=== PATIENT | female | born 1955 | race Caucasian/White ===

== ENCOUNTER → 2017-12-13 | Outpatient (CLI) | payer BC ==
--- NOTE | 2017-12-13 12:44 | Diagnostic Imaging Report ---
PROCEDURE:US RETROPERITONEAL ( KIDNEY ). COMPARISON:None. INDICATIONS:Cyst Of Kidney TECHNIQUE: Medina-scale and color sonographic images of the bilateral kidneys and bladder where obtained in transverse and longitudinal planes. FINDINGS: RIGHT KIDNEY: Measures 9.0 x 3.2 x 3.7 cm, cortex 1.1 cm Cysts: There is a 1.9 cm right lower pole renal cyst. Solid masses: None Stones: Echogenic stone measuring 6 mm in the midportion of the right kidney. Hydronephrosis: None Echogenicity: Normal LEFT KIDNEY: Measures 10.1 x 5.3 x 4.1 cm, cortex 1.5 cm Cysts: None Solid masses: None Stones: None Hydronephrosis: None Echogenicity: None Bladder: Normal CONCLUSION: 1. Simple right lower pole renal cyst. 2. Shadowing stone in the midpole of the right kidney has a maximal measurement of 6 mm. Johny Borges D.O. Dictated by: Johny Borges D.O. on 12/13/2017 at 12:45 Electronically approved by: Johny Borges D.O. on 12/13/2017 at 12:45
== END ==
LOC: US 11:14
PROVIDERS: ATTEND Urology
DX: N28.1 Cyst of kidney, acquired (principal)
CPT/HCPCS: 76770

== ENCOUNTER → 2018-06-28 | Outpatient (CLI) | payer BC ==
--- NOTE | 2018-06-28 10:26 | Diagnostic Imaging Report ---
PROCEDURE: CT ABDOMEN AND PELVIS WITHOUT CONTRAST TECHNIQUE: The abdomen and pelvis were scanned utilizing a multidetector helical scanner from the diaphragm to the lesser trochanter. No IV contrast was administered per protocol. Coronal and sagittal multiplanar reformations were obtained. COMPARISON: Renal ultrasound 12/13/17. INDICATIONS: RENAL STONE FINDINGS: ABSENCE OF INTRAVENOUS CONTRAST DECREASES SENSITIVITY FOR DETECTION OF FOCAL LESIONS AND VASCULAR PATHOLOGY. LOWER THORAX: Patchy dependent atelectasis. Calcified granuloma in the right lower lobe. HEPATOBILIARY: No focal hepatic lesions. No biliary ductal dilatation. SPLEEN: No splenomegaly. PANCREAS: No focal masses or ductal dilatation. ADRENALS: No adrenal nodules. KIDNEYS/URETERS: No hydronephrosis or solid mass lesions. There is a 5 mm right mid pole non-obstructive renal stone, similar to prior renal ultrasound accounting for differences in technique. Hypodense lesion in the right lower pole was previously characterized as a simple cyst on ultrasound. PELVIC ORGANS/BLADDER: Unremarkable. PERITONEUM / RETROPERITONEUM: No free air or fluid. LYMPH NODES: No lymphadenopathy. VESSELS: Unremarkable. GI TRACT: No distention or wall thickening. Sigmoid diverticulosis without CT evidence of diverticulitis. BONES AND SOFT TISSUES: No acute bony findings. IMPRESSION: Non-obstructive 5 mm right renal stone, similar to prior renal ultrasound. Dictated by: HARSHA KIRKLAND M.D. on 06/28/2018 at 10:34 Electronically approved by: HARSHA KIRKLAND M.D. on 06/28/2018 at 10:34
== END ==
LOC: CT 08:28
PROVIDERS: ATTEND Urology
DX: N20.0 Calculus of kidney (principal)
CPT/HCPCS: 74176

== ENCOUNTER → 2018-11-29 | Day surgery (SDC) | payer BC ==
[2018-11-23 12:09] LABS: BASOPHILS % 0.4 % (0.0-1.0); EOSINOPHILS # (AUTO) 0.1 (0.0-0.4); HEMATOCRIT 44.3 % (34.2-44.1); HEMOGLOBIN 14.4 g/dL (12.0-16.0); LYMPHOCYTES # (AUTO) 1.4 (1.0-3.2); LYMPHOCYTES % 21.1 % (18.0-39.1); MEAN CORPUSCULAR HEMOGLOBIN 30.6 pg (28-32); MEAN CORPUSCULAR HGB CONC 32.5 g/dL (31-35); MEAN CORPUSCULAR VOLUME 94.3 fL (81-99); MONOCYTES # (AUTO) 0.5 (0.2-0.8); MONOCYTES % 7.9 % (4.4-11.3); NEUTROPHILS # (AUTO) 4.7 (2.1-6.9); NEUTROPHILS % 68.4 % (38.7-80.0); PLATELET COUNT 329 x10e3/uL (140-360); RED CELL DISTRIBUTION WIDTH 13.1 % (11.7-14.4)
[2018-11-23 12:34] LABS: ALANINE AMINOTRANSFERASE 34 IU/L (0-55); ALBUMIN 3.8 g/dL (3.5-5.0); ALKALINE PHOSPHATASE 108 IU/L (40-150); ANION GAP 12.8 mmol/L (8-16); BLOOD UREA NITROGEN 16 mg/dL (7-26); BUN/CREATININE RATIO 18 (6-25); CARBON DIOXIDE 29 mmol/L (22-29); CHLORIDE 100 mmol/L (98-107); CREATININE, SERUM 0.88 mg/dL (0.57-1.11); EST GLOMERULAR FILTRATION RATE > 60 ML/MIN (60-); GLUCOSE 103 mg/dL (74-118); POTASSIUM 3.8 mmol/L (3.5-5.1); SODIUM 138 mmol/L (136-145)
--- NOTE | 2018-11-23 13:31 | Diagnostic Imaging Report ---
EXAM: CHEST 2 VIEWS, PA and lateral DATE: 11/23/2018 Time stamp on exam: 12:15 PM INDICATION: Preoperative COMPARISON: None FINDINGS: LINES/TUBES: None LUNGS: Right a similar atelectasis/scarring. PLEURA: No effusions or pneumothorax. HEART AND MEDIASTINUM: Normal size and contour. BONES AND SOFT TISSUES: No acute findings. IMPRESSION: No acute thoracic abnormality. Signed by: Dr. Johny Borges DO on 11/23/2018 1:27 PM
[~2018-11-29] MED LIST: ABILIFY5 MG PO; ADVAIR 100-501 EACH; ASPIRIN81 MG; BELLADONNA/OPIUM 60 MG SUPP PR ONE; BISOPROLOL-HCT1 EAC2; BUPROPION HCL100 MG PO; BUTALBIT-ACETA1 EACH; CEFTRIAXONE SOD 1 GM/NS 50 ML 50 ML IV ONE; CEPHALEXIN500 MG PO; DEXAMETHASONE SOD PHOS INJ 4 MG/ML VIAL ONE; DIAZEPAM5 MG PO; DULERA 200 MCG/13 GM; FENTANYL CITRATE/PF 100MCG/2 ML INJ ONE; IOPAMIDOL 610MG/1ML 300 MG/ML VIAL IV ONE; LEVOTHYROXINE50 MCG PO; LIDOCAINE HCL 2% LOCAL INJ 5 ML SDV VIAL INJ ONE; OMEGA 3 1,0001 EACH; ONDANSETRON HCL INJ 2MG/ML 2ML 2 MG/ML VIAL ONE; PRAVASTATIN SOD20 MG; PROPOFOL IV EMULSION 10 MG/ML 20 ML VIAL ONE; PROVENTIL HFA6.7 GM; SEVOFLURANE INHAL SOLN 250 ML PEN BTL ONE; SINGULAIR10 MG; VIRTUSSIN; VITAMIN D32000 UNIT
--- OUTSIDE RECORDS SUMMARY | 2018-11-29 08:10 | XMS REPORT ---
Author Author [facility] Address Unknown Phone Unavailable Care Team Providers Care Reed Fixer Name Role Phone BEULAH LINARES Unavailable Unavailable Problems This patient has no known problems. Allergies, Adverse Reactions, Alerts This patient has no known allergies or adverse reactions. Medications This patient has no known medications. Results Test Description Test Time Test Comments Text Results Atomic Results Result Comments CHEST 2 VIEWS 2018-11-23 13:27:00 [place] [address] Patient Name: CLARISSA ARMANDO MR #: [id number] : 1955 Age/Sex: 63/F Req #: [id number] Adm Physician: Ordered by: BEULAH LINARES MD Report #: [id number] Location: OR Room/Bed: Procedure: [id number] DX/CHEST 2 VIEWS Exam Date: 11/23/18 Exam Time: 1210 REPORT STATUS: Signed EXAM: CHEST 2 VIEWS, PA and lateral DATE: 11/23/2018 Time sta mp on exam: 12:15 PM INDICATION: Preoperative COMPARISON: None FINDINGS: LINES/TUBES: None LUNGS: Right a similar atelectasis/scarring. PLEURA: No effusions or pneumothorax. HEART AND MEDIASTINUM: Normal size and contour. BONES AND SOFT TISSUES: No acute findings. IMPRESSION: No acute thoracic abnormality. Signed by: Dr. Danny Borges DO on 11/23/2018 1:27 PM Dictated By: DANNY BORGES DO 1327 Transcribed By: CARYL on 11/23/18 1327 COPY TO: BEULAH LINARES MD SCR MAMM BILATERAL CAD DIGITAL 2018-08-16 09:19:39 - SCR MAMM BILATERAL CAD DIGITALBILATERAL DIGITAL SCREENING MAMMOGRAM WITH CAD: 08/11/2018CLINICAL: Asymptomatic. Current mammographic images were evaluated by either a doForms M- Vu or a Digify ImageChecker CAD (computer aided detection system). Comparison is made to exams dated 08/09/2017 mammogram, 08/09/2016 mammogram, and 02/04/2015 mammogram - [facility]. There are scattered f ibroglandular tissues in both breasts. No new suspicious mass, architectural distortion, malignant type calcification, or lymph node abnormality detected. Again noted is a stable appearing subcentimeter mass in the lower inner quadrant of the right breast, middle depth (stable in mammographic appearance since 2016).Breast architecture is stable compared to prior exams.IMPRESSION: NEGATIVEThere is no mammographic evidence of malignancy. Resume annual screening mammography in one year. Jackeline Colon M.D. ar/:08/16/2018 09:19:39 Tip Scourer: Mayte MAYEN RT(M), [facility] sent: BIRADS 1-2 Normal Mammogram BI-RADS: [address] ABDOMEN/PELVIS WO 2018-06-28 10:34:00 [place] [address] Patient Name: CLARISSA ARMANDO MR #: [id number] : 1955 Age/Sex: 63/F Req #: [id number] [facility] Physician: Ordered by: BEULAH LINARES MD Report #: [id number] Location: CT Room/Bed: Procedure: [id number] CT/CT ABDOMEN/PELVIS WO Exam Date: 06/28/18 Exam Time: 0920 REPORT STATUS: Signed PROCEDURE: CT ABDOMEN AND PELVIS WITHOUT CONTRAST TECHNIQUE: The abdomen and pelvis were scanned utilizing a multidetector helical scanner from the diaphragm to the lesser trochanter. No IV contrast was administered per protocol. Coronal and sagittal multiplanar reformations were obtained. COMPARISON: Renal ultrasound 12/13/17. INDICATIONS: RENAL STONE FINDINGS: ABSENCE OF INTRAVENOUS CONTRAST DECREASES SENSITIVITY FOR DETECTION OF FOCAL LESIONS AND VASCULAR PATHOLOGY. LOWER THORAX: Patchy dependent atelectasis. Calcified granuloma in the right lower lobe. HEPATOBILIARY: No focal hepatic lesions. No biliary ductal dilatation. SPLEEN: No splenomegaly. PANCREAS: No focal masses or ductal dilatation. ADRENALS: No adrenal nodules. KIDNEYS/URETERS: No hydronephrosis or solid mass lesions. There is a 5 mm right mid pole non- obstructive renal stone, similar to prior renal ultrasound accounting for differences in technique. Hypodense lesion in the right lower pole was pre viously characterized as a simple cyst on ultrasound. PELVIC ORGANS/BLADDER: Unremarkable. PERITONEUM / RETROPERITONEUM: No free air or fluid. LYMPH NODES: No lymphadenopathy. VESSELS: Unremarkable. GI TRACT: No distention or wall thickening. Sigmoid diverticulosis without CT evidence of diverticulitis. BONES AND SOFT TISSUES: No acute bony findings. IMPRESSION: Non-obstructive 5 mm right renal stone, similar to prior renal ultrasound. Dictated by: HARSHA KIRKLAND M.D. on 06/28/2018 at 10:34 Electronically approved by: HARSHA KIRKLAND M.D. on at 10:34 Dictated By: HARSHA KIRKLAND MD 1034 Transcribed By: ELISE on 06/28/18 1034 COPY TO: BEULAH LINARES MD RENAL RETROPERITONEAL COMP [place] [address] Patient Name: CLARISSA ARMANDO MR #: [id number] : 1955 Age/Sex: 62/F Req #: [id number] [facility] Physician: Ordered by: BEULAH LINARES MD Report #: [id number] Location: Room/Bed: Procedure: [id number] US/US RENAL RETROPERITONEAL COMP Exam Date: 12/13/17 Exam Time: 1133 REPORT STATUS: Signed PROCEDURE: US RETROPERITONEAL ( KIDNEY ). COMPARISON: None. INDICATIONS: Cyst Of Kidney TECHNIQUE: Medina-scale and color sonographic images of the bilateral kidneys and bladder where obtained in transverse and longitudinal planes. FINDINGS: RIGHT KIDNEY: Measures 9.0 x 3.2 x 3.7 cm, cortex 1.1 cm Cysts: There is a 1.9 cm right lower pole renal cyst. Solid masses: None Stones: Echogenic stone measuring 6 mm in the midportion of the right kidney. Hydronephrosis: None Echogenicity: Normal LEFT KIDNEY: Measures 10.1 x 5.3 x 4.1 cm, cortex 1.5 cm Cysts: None Solid masses: None Stones: None Hydronephrosis: None Echogenicity: None Bladder: Normal CONCLUSION: 1. Simple right lower pole renal cyst. 2. Shadowing stone in the midpole of the right kidney has a maximal measurement of 6 mm. Danny Borges D.O. Dictated by: Danny Borges D.O. on 12/13/2017 at 12:45 Electronically approved by: Danny Borges D.O. on 12/13/2017 at 12:45 Dictated By: DANNY BORGES DO 44 Transcribed By: ELISE on 12/13/171244 COPY TO: BEULAH LINARES MD
--- OUTSIDE RECORDS SUMMARY | 2018-11-29 08:10 | XMS REPORT | Clinical Summary ---
Author Author [facility] Address Unknown Phone Unavailable Care Team Providers Care Manager Wound Care Name Role Phone Matti Koko PCP Allergies No Known Allergies Medications End Date Status Medication Sig Dispensed Refills Start Date Active theophylline (THEODUR) Take 100 mg 0 100 MG 12 hr tablet by mouth 2 (two) times daily. Active albuterol HFA (VENTOLIN Inhale 1 puff 0 HFA) 90 mcg/actuation by mouth via inhaler inhaler every 6 (six) hours as needed for Wheezing. Active montelukast (SINGULAIR) Take 10 mg by 0 10 mg tablet mouth nightly. Active pravastatin (PRAVACHOL) Take 20 mg by 0 20 MG tablet mouth daily. Active buPROPion (WELLBUTRIN SR) Take 150 mg 0 150 MG 12 hr tablet by mouth 2 (two) times daily. Active bisoprolol-hydrochlorothi Take 1 tablet 0 azide (ZIAC) 5-6.25 mg by mouth per tablet daily. Active ARIPiprazole (ABILIFY) 5 Take 5 mg by 0 MG tablet mouth daily. Active mometasone-formoterol Inhale 2 0 (DULERA) 200-5 puffs by mcg/actuation inhaler mouth via inhaler 2 (two) times daily. Active diazepam (VALIUM) 10 MG Take 10 mg by 0 tablet mouth every 6 (six) hours as needed for Anxiety. Active rkmuzjpaye-enpoenruii-rvo Take by mouth 0 -cod [id number] mg Cap as needed. Active Problems No known active problems Social History Date Tobacco Use Types Packs/Day Years Used Former Smoker Smokeless Tobacco: Never Used Alcohol Use Drinks/Week oz/Week Comments No Sex Assigned at Date Recorded Not on file Industry Job Start Date Occupation Not on file Not on file Not on file Travel End Travel History Travel Start No recent travel history available. Last Filed Vital Signs Not on file Plan of Treatment Not on file Results Not on fileafter 11/28/2017 Insurance Payer Benefit Subscriber ID Type Phone Address Plan / Group BLUE CROSS[employer]BL[employer] BCBS FED xxxxxxxxx [facility] [phone] [address] [place] [address]
--- NOTE | 2018-11-29 10:22 | Diagnostic Imaging Report ---
Exam: Abdominal film Clinical History: Preoperative study for lithotripsy Comparison: None. DISCUSSION: The bowel gas pattern shows no dilated, air-filled loops of bowel. No mass effect or organomegaly. Regional skeletal structures are intact with degenerative changes of the lower lumbar spine. 3-4 mm calcification projects over the right renal shadow. Questionable 7 mm calcific density projects over the expected region of the left ureteropelvic junction. Multiple pelvic phleboliths. IMPRESSION: 3-4 mm right renal calculus. Questionable 7 mm density in the expected region of the left ureteropelvic junction may represent a urinary system stone or overlying bowel contents. Signed by: Dr. Alec Yoo M.D. on 11/29/2018 10:19 AM
[2018-11-29 15:00] VITALS: BP 145/68
--- NOTE | 2018-12-28 06:21 | Operative Report ---
DATE OF PROCEDURE: 11/29/2018 SURGEON: Jesús Nash MD PREOPERATIVE DIAGNOSES: 1. Right nephrolithiasis. 2. Urinary tract infections. 3. Hematuria. POSTOPERATIVE DIAGNOSES: 1. Right nephrolithiasis. 2. Urinary tract infections. 3. Hematuria. OPERATION PERFORMED: 1. Right-sided extracorporeal shockwave lithotripsy (separate procedure performed for the nephrolithiasis done from separate approach). 2. Cystourethroscopy with bilateral ureteral catheterization and retrograde ureteropyelography (separate procedure performed for hematuria and urinary tract infections). 3. Interpretation of retrograde ureteropyelography. 4. Supervision of fluoroscopy, no radiologist present. 5. Pelvic examination under anesthesia. ANESTHESIA: General. COMPLICATIONS: None. CLINICAL SUMMARY: Jade Quinn is a 63-year-old woman with the above preoperative diagnoses. She was brought for the above procedures. She is aware of the risks of bleeding, infection, injury to adjacent structures, need for additional procedures and elected to proceed. OPERATIVE PROCEDURE IN DETAIL: Informed consent was verified. Jade Quinn was properly identified, taken to the operating room, placed on the lithotripsy table in supine position. Anesthesia was uneventfully begun. The patient's right nephrolithiasis was localized with biplanar fluoroscopy. A total of 3000 shocks were delivered to the 5 mm stone that was located in the mid pole calyx. The patient was then carefully and gently repositioned in dorsal lithotomy position with all pressure points well padded. Her genitalia were prepared and draped in usual sterile fashion. A cystoscope sheath was inserted into the patient's urethra and the bladder was drained. Panendoscopy of urinary bladder revealed no suspicious mucosal lesions, no tumors, no stones, and no diverticula. There was a small little vesicle at the 10 o'clock position at the level of the bladder neck, consistent with chronic inflammation and chronic infection. No suspicious mucosal lesions. There were normally positioned configured ureteral orifices. No stones were identified. The ureteral catheter was used to cannulate each ureter and retrograde ureteropyelogram was performed. Interpretation of retrograde ureteropyelography contrast was instilled in a retrograde fashion bilaterally. There was no filling defects on the right-hand side, which corresponds to the stone fragments and presumed blood clots. There was no hydronephrosis. Unobstructed drainage was observed bilaterally fluoroscopically. The patient's bladder was drained. Cystoscope was withdrawn. Pelvic examination under anesthesia revealed atrophic vaginitis. There were no abnormal palpable pelvic masses. There were no obvious mucosal lesions. The patient was uneventfully reversed from anesthesia and taken to recovery room in stable condition. Explicit postop instructions were given. We will follow the patient up in the office as well as on a long-term basis. Jesús Nash MD OH/MODL /[id number] cc: MD Koko Corral MD
== END | disposition home or self-care (01) ==
LOC: OR 08:08
PROVIDERS: ATTEND Urology
DX: N20.0 Calculus of kidney (principal); N39.0 Urinary tract infection, site not specified; N32.89 Other specified disorders of bladder; N95.2 Postmenopausal atrophic vaginitis; N28.1 Cyst of kidney, acquired; R35.1 Nocturia; J45.909 Unspecified asthma, uncomplicated; I10 Essential (primary) hypertension; R00.1 Bradycardia, unspecified; Z01.810 Encounter for preprocedural cardiovascular examination; Z01.812 Encounter for preprocedural laboratory examination; Z01.818 Encounter for other preprocedural examination; Z79.82 Long term (current) use of aspirin
CPT/HCPCS: 36415; 50590; 71046; 74018; 80053; 83970; 84550; 85025; 93005; C1758; J0696; J1100; J2001; J2405; J2704; Q9967

== ENCOUNTER → 2019-01-16 | Outpatient (CLI) | payer BC ==
[~2019-01-16] MED LIST changes: -BELLADONNA/OPIUM 60 MG SUPP PR ONE; -CEFTRIAXONE SOD 1 GM/NS 50 ML 50 ML IV ONE; -DEXAMETHASONE SOD PHOS INJ 4 MG/ML VIAL ONE; -FENTANYL CITRATE/PF 100MCG/2 ML INJ ONE; -IOPAMIDOL 610MG/1ML 300 MG/ML VIAL IV ONE; -LIDOCAINE HCL 2% LOCAL INJ 5 ML SDV VIAL INJ ONE; -ONDANSETRON HCL INJ 2MG/ML 2ML 2 MG/ML VIAL ONE; -PROPOFOL IV EMULSION 10 MG/ML 20 ML VIAL ONE; -SEVOFLURANE INHAL SOLN 250 ML PEN BTL ONE
--- NOTE | 2019-01-16 12:26 | Diagnostic Imaging Report ---
Exam: KUB - 2 views Clinical History: Renal calculus. Comparison: KUB 11/29/2018. Findings: Nonobstructive bowel gas pattern. Bowel gas obscures visualization of the kidneys. Previously noted right renal calcification and calcification overlying the expected location of the left ureteropelvic junction are not well seen. No acute osseous abnormality. Impression: Bowel gas obscures visualization of the kidneys. Previously noted nephrolithiasis is not well seen on this study. Signed by: Dr. Jaxon Kamara MD on 01/16/2019 12:23 PM
== END ==
LOC: RAD 11:04
PROVIDERS: ATTEND Urology
DX: N20.0 Calculus of kidney (principal)
CPT/HCPCS: 74018

== ENCOUNTER → 2019-05-18 | Outpatient (CLI) | payer BC ==
--- NOTE | 2019-05-18 12:34 | Diagnostic Imaging Report ---
Abdomen, 1 view. History: Kidney stone removal. Comparison: 01/16/2019. Findings: Air is scattered throughout nondilated small and large bowel. There are no masses or renal calcifications. Calcified phleboliths are present within the pelvis, unchanged. The osseous structures are intact. IMPRESSION: Non-specific bowel gas pattern. No visible renal calculi. Signed by: Arnaud Lamb on 05/18/2019 12:30 PM
== END ==
LOC: RAD 11:41
PROVIDERS: ATTEND Urology
DX: N20.0 Calculus of kidney (principal)
CPT/HCPCS: 74018

== ENCOUNTER → 2020-06-09 | Outpatient (CLI) | payer MEDICARE, BC | LOC: RAD 08:43 | PROVIDERS: ATTEND Urology | DX: Z87.442 Personal history of urinary calculi (principal) | CPT/HCPCS: 74018 ==

== ENCOUNTER → 2020-06-09 | Outpatient (CLI) | payer MEDICARE, BC | LOC: MRI 08:35 | PROVIDERS: ATTEND Family Medicine | DX: M75.112 Incomplete rotator cuff tear or rupture of left shoulder, not specified as traumatic (principal) ==

== ENCOUNTER → 2020-07-21 | Outpatient (RCR) | payer MEDICARE, BC | LOC: PT 07-01 14:53 | PROVIDERS: ATTEND Specialist | DX: S46.092D Other injury of muscle(s) and tendon(s) of the rotator cuff of left shoulder, subsequent encounter (principal); M62.81 Muscle weakness (generalized); M25.512 Pain in left shoulder; M25.612 Stiffness of left shoulder, not elsewhere classified ==

== ENCOUNTER 2020-08-04 14:00 | Outpatient (RCR) | payer MEDICARE, BC | END 2020-08-21 | LOC: PT 14:00 | PROVIDERS: ATTEND Specialist | DX: S46.092A Other injury of muscle(s) and tendon(s) of the rotator cuff of left shoulder, initial encounter (principal) ==

== ENCOUNTER → 2021-01-30 | Outpatient (CLI) | payer MEDICARE, BC | LOC: RAD 10:32 | PROVIDERS: ATTEND Urology | DX: N20.0 Calculus of kidney (principal) | CPT/HCPCS: 74018 ==

== ENCOUNTER → 2021-10-28 | Outpatient (CLI) | payer MEDICARE, BC | LOC: RAD 08:44 | PROVIDERS: ATTEND Urology | DX: N20.0 Calculus of kidney (principal) | CPT/HCPCS: 74018 ==

== ENCOUNTER → 2022-06-30 | Outpatient (CLI) | payer MEDICARE, BC | LOC: US 14:30 | PROVIDERS: ATTEND Urology | DX: R31.21 Asymptomatic microscopic hematuria (principal) | CPT/HCPCS: 74018; 76770 ==

== ENCOUNTER → 2024-03-22 | Outpatient (REF) | payer MEDICARE, BC | LOC: RAD 12:06 | PROVIDERS: ATTEND Urology | DX: N20.0 Calculus of kidney (principal) | CPT/HCPCS: 74018 ==

== ENCOUNTER → 2025-01-07 | Outpatient (REF) | payer MEDICARE, BC | LOC: RAD 15:41 | PROVIDERS: ATTEND Urology | DX: N20.0 Calculus of kidney (principal) | CPT/HCPCS: 74018 ==